=== PATIENT | female | born 2005 | race Asian ===

== ENCOUNTER 2024-07-31 13:01 | Emergency (ER) | payer SELFPAY ==
[2024-07-31 13:18] VITALS: BP 98/58; PULSE 96; O2SAT 100
--- NOTE | 2024-07-31 14:53 | PC.NURSE ---
NA at 1453.
== END 2024-07-31 15:49 | disposition left against medical advice (07) ==
LOC: HO.ED 15:47
PROVIDERS: Emergency Provider Emergency Medicine
DX: R07.89 Other chest pain (principal)